=== PATIENT | male | born 1995 | race African-American/Black ===

== ENCOUNTER 2016-09-11 18:22 | Emergency (ER) | payer SELFPAY ==
[~2016-09-11] VITALS: Ht 177.8 cm; Wt 88.5 kg
[~2016-09-11 18:22] MED LIST: POLY10O LEFT EYE; Z.0.NO CURRENT MEDS
[2016-09-11 18:23] VITALS: BP 135/65; PULSE 94; RESP 20; TEMP 98.4; O2SAT 99
[2016-09-11] MEDS ORDERED: SODIUM CHLORIDE 0.9% FLUSH 10 ML FLUSH IVF PRN (19:00)
[2016-09-11] MEDS ORDERED: AZITHROMYCIN PWD FOR SUSP 1 GM PACKET PO ONE (19:15)
[2016-09-11] MEDS ORDERED: cefTRIAXone 250 MG VIAL IM ONE (19:15)
--- NOTE | 2016-09-11 19:27 | PD ---
HPI Chief Complaint: Complaint Time Seen by Provider: 19:24 Travel History International Travel<30 days: No Contact w/Intl Traveler<30days: No Traveled to known affect area: No History of Present Illness HPI 21-year-old black male presents to emergency department with a yellowish-green urethral discharge after unprotected intercourse earlier this past week. He denies any fever chills. No rashes or lesions. He states that he has been recently [facility] from [facility] last 3-4 months and his HIV test was negative that time. He denies any abdominal pain. Positive dysuria but no frequency. PFSH Past Medical History Medical History: Denies Significant Hx Diminished Hearing: No Tetanus Vaccination: < 5 Years Past Surgical History Surgical History: No Previous Surgery Social History Alcohol Use: No Tobacco Use: No Substance Use: Yes (MARIJUANA LAST USED 2 HOURS AGO) Allergies-Medications (Allergen,Severity, Reaction): Coded Allergies: No Known Allergies (Unverified , 09/30/12) Reported Meds & Prescriptions Reported Meds & Active Scripts Active Polytrim Opth (Polymyxin/Trimethoprim Sulfate) 10 Ml Soln 1 Drop LEFT EYE Q4 7 Days Reported No Current Meds (Miscellaneous Medication) [facility] Review of Systems Except as stated in HPI: all other systems reviewed are Neg Physical Exam Narrative GENERAL: This is a well-nourished, well-developed patient, in no apparent distress. SKIN: No rashes, ecchymoses or lesions. Warm and dry. HEAD: Atraumatic. Normocephalic. EYES: PERRL, EOMI, no discharge or injection. No scleral icterus. EARS: Clear NOSE: Nasal turbinates appear normal. THROAT: Mucosa pink and moist. Airway patent. NECK: Trachea midline. supple, moves head freely. LUNGS: Clear to auscultation. CV: Regular in rhythm. ABDOMEN: Soft nontender. EXT: No clubbing cyanosis or edema. GENITOURINARY: Circumcised. Testes descended bilaterally without evidence of rotation. No lesions or erythema. Positive greenish thick urethral discharge. Data Data Last Documented VS Vital Signs Date Time Temp Pulse Resp B/P Pulse Ox O2 Delivery O2 Flow Rate FiO2 09/11/16 18:23 98.4 94 20 135/65 99 Room Air Orders Ua Includes Microscopic (09/11/16 18:52) Gc And Chlamydia Pcr (09/11/16 18:52) Sodium Chloride 0.9% Flush (Ns Flush) (09/11/16 19:00) Ceftriaxone Inj (Rocephin Inj) (09/11/16 19:15) Azithromycin Powd Pack (Zithromax Powd P (09/11/16 19:15) MDM Medical Decision Making Medical Screen Exam Complete: Yes Emergency Medical Condition: Yes Medical Record Reviewed: Yes Differential Diagnosis MDM: Moderate Differential diagnoses: Chlamydia, gonorrhea, syphilis, chancroid, hepatitis, HIV, herpes Narrative Course Patient's urine sent for UA and GC chlamydia. Patient given Rocephin 250 IM and Zithromax 1 g by mouth. He has been counseled on partner notification This is GC urethritis Diagnosis Primary Impression: GC urethritis Patient Instructions: General Instructions Additional Instructions: Rest. Partner notification. Follow-up with the [facility] Department for further STD testing such as HIV, syphilis and hepatitis. No intercourse until all partners treated. Always use a condom. Return to the ER if any problems. Med/Other Pt SpecificInfo: No Meds Exist/No RX given Disposition: 01 DISCHARGE HOME Condition: Aries Mcallister Sep 11, 2016 19:27
[2016-09-11 20:30] LABS: BACTERIA, URINE RARE /hpf; BLOOD, URINE TRACE (NEG); GLUCOSE,URINE NEG (NEG); KETONE, URINE TRACE mg/dL (NEG); MUCUS URINE MOD /lpf (OCC); NITRITE,URINE NEG (NEG); PH, URINE 5.5 (5.0-8.5); URINE COLOR YELLOW (YELLW/STRAW)
[2016-09-11 22:20] LABS: CHLAMYDIA PCR DETECTED (NOT DETECT); NEISSERIA PCR DETECTED (NOT DETECT)
== END 2016-09-11 20:47 | disposition home or self-care (01) ==
LOC: NEPB 18:22
DX: N34.2 Other urethritis (principal)
CPT/HCPCS: 81001; 87491; 87591; 96372; 99283; J0696